=== PATIENT | female | born 1990 | race African-American/Black ===

== ENCOUNTER 2016-09-05 18:43 | Emergency (ER) | payer SELFPAY ==
[~2016-09-05] VITALS: Ht 175.3 cm; Wt 94.0 kg
[2016-09-05 18:45] VITALS: BP 138/88; PULSE 100; RESP 20; TEMP 98; O2SAT 98
[2016-10-08] MEDS ORDERED: ZOFR4TAB3 SL (16:49)
[2016-10-10] MEDS ORDERED: ZOFR4TAB3 SL (15:52)
[2016-10-10] MEDS ORDERED: [UNRECOGNIZED DRUG - CODE] PO (16:03)
[2016-10-15] MEDS ORDERED: LO LTAB PO (16:37)
[2016-10-29] MEDS ORDERED: TRAM50TA PO (10:47)
[2016-11-06] MEDS ORDERED: APRITAB PO (08:18)
[2016-11-18] MEDS ORDERED: ALBUAER3 INH (11:05)
== END 2016-09-05 18:50 | disposition left against medical advice (07) ==
LOC: NED 18:43
DX: R10.9 Unspecified abdominal pain (principal); Z53.21 Procedure and treatment not carried out due to patient leaving prior to being seen by health care provider
CPT/HCPCS: 99281

== ENCOUNTER 2016-09-05 20:14 | Emergency (ER) | payer OTHER ==
[~2016-09-05] VITALS: Ht 175.3 cm; Wt 96.6 kg
[2016-09-05 20:18] VITALS: BP 120/80; PULSE 83; RESP 20; TEMP 98; O2SAT 99
--- NOTE | 2016-09-05 20:58 | PD ---
HPI Chief Complaint: Flank/Kidney Pain Time Seen by Provider: 20:29 Travel History International Travel<30 days: No Contact w/Intl Traveler<30days: No Traveled to known affect area: No History of Present Illness HPI 18-year-old female here for evaluation of right upper quadrant abdominal pain. The patient has had intermittent right upper quadrant pain over the last 3 days associated with nausea but no vomiting. No fevers or chills. Pain is sharp, intermittent, no modifying factors. History of section, appendectomy, and ovarian cyst removal. States that she was seen by her primary care physician who ordered an outpatient right upper quadrant ultrasound, however it is not scheduled for another couple of weeks. She is currently on her menstrual period. No urinary symptoms. [facility] Past Medical History Asthma: Yes Diminished Hearing: No Respiratory: Yes (ASTHMA) Immunizations Current: Yes LMP: 09/05/16 : 3 Para: 1 Miscarriage: 1 Ovarian Cysts: Yes (Cyst removed from right ovary) Past Surgical History Appendectomy: Yes Section: Yes Social History Alcohol Use: Yes (SOCIAL) Tobacco Use: No Substance Use: No Allergies-Medications (Allergen,Severity, Reaction): Coded Allergies: Naproxen (Verified Allergy, Severe, Swelling, 09/05/16) Aspirin (Verified Allergy, Intermediate, faical swelling , 09/05/16) Reported Meds & Prescriptions Reported Meds & Active Scripts Active No Active Prescriptions or Reported Medications Review of Systems Except as stated in HPI: all other systems reviewed are Neg Physical Exam Narrative GENERAL: Well-developed, well-nourished, comfortable, no acute distress. SKIN: Warm and dry. No rash. HEAD: Atraumatic. Normocephalic. EYES: Pupils equal and round. No scleral icterus. No injection or drainage. ENT: Mucous membranes pink and moist. NECK: Trachea midline. No JVD. CARDIOVASCULAR: Regular rate and rhythm. No murmur appreciated. RESPIRATORY: No accessory muscle use. Clear to auscultation. Breath sounds equal bilaterally. GASTROINTESTINAL: Abdomen soft, nondistended. Moderate right upper quadrant tenderness without rebound or guarding. Rest of abdomen is soft and nontender. MUSCULOSKELETAL: No obvious deformities. No clubbing. No cyanosis. No edema. NEUROLOGICAL: Awake and alert. No obvious cranial nerve deficits. Motor grossly within normal limits. Normal speech. PSYCHIATRIC: Appropriate mood and affect; insight and judgment normal. Data Data Last Documented VS Vital Signs Date Time Temp Pulse Resp B/P Pulse Ox O2 Delivery O2 Flow Rate FiO2 09/05/16 20:18 98.0 83 20 120/80 99 Orders Beta Hcg (Quant/Titer) (09/05/16 20:55) Complete Blood Count With Diff (09/05/16 20:55) Comprehensive Metabolic Panel (09/05/16 20:55) Lipase (09/05/16 20:55) Prothrombin Time / Inr (Pt) (09/05/16 20:55) Act Partial Throm Time (Ptt) (09/05/16 20:55) Urinalysis - C+S If Indicated (09/05/16 20:55) Us Abdomen Gallbladder (09/05/16 ) Iv Access Insert/Monitor (09/05/16 20:55) Ecg Monitoring (09/05/16 20:55) Oximetry (09/05/16 20:55) Ondansetron Inj (Zofran Inj) (09/05/16 21:00) Sodium Chloride 0.9% Flush (Ns Flush) (09/05/16 21:00) Labs Laboratory Tests Test 09/05/16 09/05/16 21:09 21:12 Urine Color YELLOW Urine Turbidity CLEAR Urine pH 7.0 Urine Specific [place] 1.027 Urine Protein TRACE mg/dL Urine Glucose (UA) NEG mg/dL Urine Ketones NEG mg/dL Urine Occult Blood MOD Urine Nitrite NEG Urine Bilirubin NEG Urine Leukocyte Esterase NEG Urine RBC 3-5 /hpf Urine WBC 0-2 /hpf Urine Squamous Epithelial 0-5 /hpf Cells Urine Bacteria NONE /hpf Microscopic Urinalysis Comment CULT NOT INDICATED White Blood Count 8.0 TH/MM3 Red Blood Count 4.19 MIL/MM3 Hemoglobin 11.9 GM/DL Hematocrit 35.6 % Mean Corpuscular Volume 85.0 FL Mean Corpuscular Hemoglobin 28.4 PG Mean Corpuscular Hemoglobin 33.5 % Concent Red Cell Distribution Width 12.7 % Platelet Count 232 TH/MM3 Mean Platelet Volume 8.3 FL Neutrophils (%) (Auto) 52.4 % Lymphocytes (%) (Auto) 40.5 % Monocytes (%) (Auto) 4.5 % Eosinophils (%) (Auto) 1.7 % Basophils (%) (Auto) 0.9 % Neutrophils # (Auto) 4.2 TH/MM3 Lymphocytes # (Auto) 3.2 TH/MM3 Monocytes # (Auto) 0.4 TH/MM3 Eosinophils # (Auto) 0.1 TH/MM3 Basophils # (Auto) 0.1 TH/MM3 CBC Comment DIFF FINAL Differential Comment Prothrombin Time 11.5 SEC Prothromb Time International 1.0 RATIO Ratio Activated Partial 24.7 SEC Thromboplast Time Sodium Level 142 MEQ/L Potassium Level 3.7 MEQ/L Chloride Level 107 MEQ/L Carbon Dioxide Level 29.0 MEQ/L Anion Gap 6 MEQ/L Blood Urea Nitrogen 11 MG/DL Creatinine 0.92 MG/DL Estimat Glomerular Filtration 88 ML/MIN Rate Random Glucose 93 MG/DL Calcium Level 8.5 MG/DL Total Bilirubin 0.2 MG/DL Aspartate Amino Transf 13 U/L (AST/SGOT) Alanine Aminotransferase 23 U/L (ALT/SGPT) Alkaline Phosphatase 83 U/L Total Protein 8.2 GM/DL Albumin 3.8 GM/DL Lipase 138 U/L Human Chorionic Gonadotropin, LESS THAN 1 Quant MIU/ML MDM Medical Decision Making Medical Screen Exam Complete: Yes Emergency Medical Condition: Yes Medical Record Reviewed: Yes Differential Diagnosis Cholecystitis, cholelithiasis, pancreatitis, peptic ulcer disease, gastritis, UTI, cystitis, pyelonephritis, nephrolithiasis Narrative Course Vital signs show heart rate 83, blood pressure 120/80, pulse ox 99% on room air , oral temp of 98F. CBC is unremarkable. CMP is unremarkable. Lipase is 138. Beta hCG is negative. UA shows moderate occult blood, 3-5 rbc's, not suggestive of UTI. The patient is currently on her menstrual period. Right upper quadrant ultrasound: CONCLUSION: 1. Small contracted gallbladder with equivocal Cortez's sign. No gallstones are identified Radionuclide imaging is recommended for further evaluation if clinically indicated. Patient was made aware of all findings. She is resting comfortably. At this point I do not believe it is clinically indicated for radionucleotide imaging. She is afebrile. Normal WBC count. She appears very comfortable. I believe she can be further worked up as an outpatient with her primary care physician. She was informed on when to return to the emergency department. She verbalizes understanding and agreement with plan. Diagnosis Primary Impression: Right upper quadrant abdominal pain Referrals: Primary Care Physician 3 days Additional Instructions: Follow-up with your primary care physician this week. Return to the emergency department for worsening symptoms or any other concerns. Scripts No Active Prescriptions or Reported Meds Disposition: 01 DISCHARGE HOME Condition: Stable Russell Pressley MD Sep 05, 2016 20:58
[2016-09-05] MEDS ORDERED: SODIUM CHLORIDE 0.9% FLUSH 5 ML FLUSH IVF PRN (21:00)
[2016-09-05] MEDS ORDERED: ONDANSETRON HCL 4 MG/2 ML VIAL IVP ONE (21:00)
[2016-09-05 21:21] LABS: GLUCOSE,URINE NEG (NEG); KETONE, URINE NEG (NEG); NITRITE,URINE NEG (NEG)
[2016-09-05 21:22] LABS: AUTOMATED NEUTROPHIL # 4.2 TH/MM3 (1.8-7.7); BASOPHIL # 0.1 TH/MM3 (0-0.2); BASOPHIL % 0.9 % (0.0-2.0); EOSINOPHIL # 0.1 TH/MM3 (0-0.4); EOSINOPHIL % 1.7 % (0.0-4.0); HEMATOCRIT 35.6 % (35.0-46.0); HEMO FLAGS DIFF FINAL; LYMPH % 40.5 % (9.0-44.0); LYMPHOCYTE # 3.2 TH/MM3 (1.0-4.8); MEAN CORPUSCULAR HEMOGLOBIN 28.4 PG (27.0-34.0); MEAN CORPUSCULAR HGB CONC 33.5 % (32.0-36.0); MONO % 4.5 % (0.0-8.0); NEUT % 52.4 % (16.0-70.0); PLATELET COUNT 232 TH/MM3 (150-450); RED BLOOD COUNT 4.19 MIL/MM3 (4.00-5.30); RED CELL DISTRIBUTION WIDTH 12.7 % (11.6-17.2)
[2016-09-05 21:28] LABS: BLOOD, URINE MOD (NEG)
[2016-09-05 21:34] LABS: CHLORIDE 107 MEQ/L (98-107); POTASSIUM 3.7 MEQ/L (3.5-5.1); SODIUM (NA) 142 MEQ/L (136-145)
[2016-09-05 21:36] LABS: COMMENT (UR) CULT NOT INDICATED; CULTURE IF INDICATED CULT NOT INDICATED; SQUAMOUS EPITHELIAL CELL URINE 0-5 /hpf (0-5); URINE COLOR YELLOW (YELLW/STRAW); WBC, URINE 0-2 /hpf (0-5)
[2016-09-05 21:39] LABS: ANION GAP 6 MEQ/L (5-15); APTT (PATIENT) 24.7 SEC (24.3-30.1); BLOOD UREA NITROGEN 11 MG/DL (7-18); PROTHROMBIN TIME - PATIENT 11.5 SEC (9.8-11.6)
[2016-09-05 21:41] LABS: ALT (GPT) 23 U/L (10-53)
[2016-09-05 21:42] LABS: AST (GOT) 13 U/L (15-37); GLOMERULAR FILTRATION RATE 88 ML/MIN (>89)
[2016-09-05 21:43] LABS: TOTAL BILIRUBIN ADULT 0.2 MG/DL (0.2-1.0)
[2016-09-05 21:44] LABS: ALKALINE PHOSPHATASE 83 U/L (45-117)
[2016-09-05 21:47] LABS: BETA HCG QUANT LESS THAN 1 MIU/ML (0-5)
--- NOTE | 2016-09-05 23:14 | RADHPO ---
EXAM DATE/TIME: 09/05/2016 22:36 [facility] COMPARISON: No previous studies available for comparison. INDICATIONS : Right upper quadrant pain. MEDICAL HISTORY : . Asthma. Ovarian cysts. SURGICAL HISTORY : Appendectomy. section. Ovarian cyst removal. ENCOUNTER: Initial ACUITY: 3 days PAIN SCORE: 3/10 LOCATION: Right upper quadrant MEASUREMENTS: LIVER: 14.6 cm length COMMON DUCT: 3 mm RIGHT KIDNEY: 10.0 x 5.4 x 4.5 cm FINDINGS: Ultrasound of the upper abdomen demonstrates normal echogenicity of the liver. No intrahepatic or ext ra hepatic ductal dilatation is seen. There is hepatopedal flow through the portal vein. The right k idney is unremarkable. The pancreas is not visualized secondary to overlying bowel gas. The gallbladd er is small and contracted but no stones are seen. There is an equivocal sonographic Cortez's sign. CONCLUSION: 1. Small contracted gallbladder with equivocal Cortez's sign. No gallstones are identified Radionucli de imaging is recommended for further evaluation if clinically indicated. Adama Hurley MD on September 05, 2016 at 23:11 Board Certified Radiologist. This report was verified electronically.
[2016-09-05 23:46] VITALS: BP 119/78; PULSE 83; RESP 18; O2SAT 99
[2016-10-08] MEDS ORDERED: ZOFR4TAB3 SL (16:49)
[2016-10-10] MEDS ORDERED: ZOFR4TAB3 SL (15:52)
[2016-10-10] MEDS ORDERED: [UNRECOGNIZED DRUG - CODE] PO (16:03)
[2016-10-15] MEDS ORDERED: LO LTAB PO (16:37)
[2016-10-29] MEDS ORDERED: TRAM50TA PO (10:47)
[2016-11-06] MEDS ORDERED: APRITAB PO (08:18)
[2016-11-18] MEDS ORDERED: ALBUAER3 INH (11:05)
== END 2016-09-06 00:06 | disposition home or self-care (01) ==
LOC: PHED 20:14
DX: R10.11 Right upper quadrant pain (principal)
CPT/HCPCS: 76705; 80053; 81001; 83690; 84702; 85025; 85610; 85730; 96374; 99284; J2405

== ENCOUNTER 2016-10-26 08:53 | Emergency (ER) | payer OTHER ==
[~2016-10-26] VITALS: Ht 175.3 cm; Wt 96.0 kg
[~2016-10-26 08:53] MED LIST: LO LTAB PO; ZOFR4TAB3 SL; [UNRECOGNIZED DRUG - CODE] PO
[2016-10-26 08:54] VITALS: BP 120/76; PULSE 78; RESP 20; TEMP 98.1; O2SAT 98
[2016-10-26] MEDS ORDERED: SODIUM CHLOR 0.9% 1000 ML INJ 1,000 ML IV SCH (09:07)
[2016-10-26 09:10] VITALS: O2SAT 99
[2016-10-26] MEDS ORDERED: SODIUM CHLORIDE 0.9% FLUSH 10 ML FLUSH IV FLUSH PRN (09:15)
[2016-10-26] MEDS ORDERED: MORPHINE SULFATE 4 MG/ML INJ IV PUSH ONE (09:15)
--- NOTE | 2016-10-26 09:16 | PD ---
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 Patient says this started yesterday. However she has had this same pain on and off for past 3 months. She was seen in the emergency room here at least once and had a gallbladder ultrasound done which was negative. Patient also had an MRI of her abdomen. She is waiting for an [employer] appointment. She says she has started with vaginal bleeding yesterday. It's not heavy and she is not passing big clots. She looks anxious and in distress. Vital signs were within normal limits. PFSH Past Medical History Narrative Medical List of her past medical, surgical, social and family history was reviewed from the nursing note. Hx Anticoagulant Therapy: No Asthma: Yes Cardiovascular Problems: No Chemotherapy: No Cerebrovascular Accident: No Diabetes: No Diminished Hearing: No Respiratory: Yes (ASTHMA) Immunizations Current: Yes ?: Unknown LMP: 10/10/16 : 3 Para: 1 Miscarriage: 1 Ovarian Cysts: Yes (Cyst removed from right ovary) Past Surgical History Appendectomy: Yes Section: Yes Hysterectomy: No Social History Alcohol Use: Yes (SOCIAL) Tobacco Use: No Substance Use: No Allergies-Medications (Allergen,Severity, Reaction): Coded Allergies: Naproxen (Verified Allergy, Severe, Swelling, 10/26/16) Aspirin (Verified Allergy, Intermediate, faical swelling , 10/26/16) Comments List of her allergies reviewed from the nursing note. Reported Meds & Prescriptions Reported Meds & Active Scripts Active Tramadol (Tramadol HCl) 50 Mg Tab 50 Mg PO Q6H PRN Macrobid (Nitrofurantoin Monoh/Nitrofur Macro) 100 Mg Cap 100 Mg PO BID Narrative Medication Most of her home medications reviewed from the nursing note. Review of Systems Except as stated in HPI: all other systems reviewed are Neg Physical Exam Narrative GENERAL: Awake, alert, anxious, moderate distress SKIN: Focused skin assessment warm/dry. HEAD: Atraumatic. Normocephalic. EYES: Pupils equal and round. No scleral icterus. No injection or drainage. ENT: No nasal bleeding or discharge. Mucous membranes pink and moist. NECK: Trachea midline. No JVD. CARDIOVASCULAR: Regular rate and rhythm. No murmur appreciated. RESPIRATORY: No accessory muscle use. Clear to auscultation. Breath sounds equal bilaterally. GASTROINTESTINAL: Abdomen soft, non-tender, nondistended. Hepatic and splenic margins not palpable. MUSCULOSKELETAL: No obvious deformities. No clubbing. No cyanosis. No edema. NEUROLOGICAL: Awake and alert. No obvious cranial nerve deficits. Motor grossly within normal limits. Normal speech. PSYCHIATRIC: Appropriate mood and affect; insight and judgment normal. Data Data Last Documented VS Vital Signs Date Time Temp Pulse Resp B/P Pulse Ox O2 Delivery O2 Flow Rate FiO2 10/26/16 09:57 68 20 122/78 99 Room Air 10/26/16 08:54 98.1 Orders Complete Blood Count With Diff (10/26/16 09:07) Comprehensive Metabolic Panel (10/26/16 09:07) Lipase (10/26/16 09:07) Urinalysis - C+S If Indicated (10/26/16 09:07) Ct Abd/Pel W/O Iv Contrast (10/26/16 09:07) Iv Access Insert/Monitor (10/26/16 09:07) Ecg Monitoring (10/26/16 09:07) Oximetry (10/26/16 09:07) Morphine Inj (Morphine Inj) (10/26/16 09:15) Sodium Chlor 0.9% 1000 Ml Inj (Ns 1000 M (10/26/16 09:07) Sodium Chloride 0.9% Flush (Ns Flush) (10/26/16 09:15) Urine Culture (10/26/16 09:15) Nitrofurantoin Monohyd Macrocr (Macrobid (10/26/16 09:45) Labs Laboratory Tests Test 10/26/16 09:15 White Blood Count 6.0 TH/MM3 Red Blood Count 4.59 MIL/MM3 Hemoglobin 12.9 GM/DL Hematocrit 38.9 % Mean Corpuscular Volume 84.8 FL Mean Corpuscular Hemoglobin 28.1 PG Mean Corpuscular Hemoglobin 33.2 % Concent Red Cell Distribution Width 13.3 % Platelet Count 258 TH/MM3 Mean Platelet Volume 9.0 FL Neutrophils (%) (Auto) 52.1 % Lymphocytes (%) (Auto) 40.6 % Monocytes (%) (Auto) 5.5 % Eosinophils (%) (Auto) 1.3 % Basophils (%) (Auto) 0.5 % Neutrophils # (Auto) 3.1 TH/MM3 Lymphocytes # (Auto) 2.4 TH/MM3 Monocytes # (Auto) 0.3 TH/MM3 Eosinophils # (Auto) 0.1 TH/MM3 Basophils # (Auto) 0.0 TH/MM3 CBC Comment DIFF FINAL Differential Comment Urine Color LIGHT-RED Urine Turbidity HAZY Urine pH 5.5 Urine Specific [place] 1.020 Urine Protein 30 mg/dL Urine Glucose (UA) NEG mg/dL Urine Ketones NEG mg/dL Urine Occult Blood LARGE Urine Nitrite NEG Urine Bilirubin NEG Urine Urobilinogen LESS THAN 2.0 MG/DL Urine Leukocyte Esterase MOD Urine RBC 4 /hpf Urine WBC 9 /hpf Urine Squamous Epithelial 15 /hpf Cells Urine Transitional Epithelial <1 /hpf Cells Urine Amorphous Sediment MOD Urine Bacteria OCC /hpf Urine Mucus FEW /lpf Microscopic Urinalysis Comment CULTURE INDICATED Sodium Level 138 MEQ/L Potassium Level 4.1 MEQ/L Chloride Level 105 MEQ/L Carbon Dioxide Level 26.5 MEQ/L Anion Gap 7 MEQ/L Blood Urea Nitrogen 11 MG/DL Creatinine 0.87 MG/DL Estimat Glomerular Filtration 94 ML/MIN Rate Random Glucose 94 MG/DL Calcium Level 8.9 MG/DL Total Bilirubin 0.4 MG/DL Aspartate Amino Transf 12 U/L (AST/SGOT) Alanine Aminotransferase 22 U/L (ALT/SGPT) Alkaline Phosphatase 93 U/L Total Protein 8.2 GM/DL Albumin 3.9 GM/DL Lipase 93 U/L [facility] Medical Decision Making Medical Screen Exam Complete: Yes Emergency Medical Condition: Yes Medical Record Reviewed: Yes Differential Diagnosis Ruptured ovarian cyst, renal colic Narrative Course 9:16 AM awaiting for the CAT scan to be done and resulted. Awaiting for blood test. Patient was medicated for pain. 10:[address] scan is within normal limit. UA was suggestive of UTI and have given her dose of Macrobid. I will discharge her home. Procedures EKG Prior to Arrival: No Diagnosis Primary Impression: Lower abdominal pain, unspecified Additional Impression: UTI (urinary tract infection) Qualified Code: N39.0 - Urinary tract infection with hematuria, site unspecified Referrals: Primary Care Physician 3 days Additional Instructions: Please follow-up with a [employer]PECTOR specialist. Take the medication as per the prescription direction. Med/Other Pt SpecificInfo: Prescription(s) given Scripts Nitrofurantoin Monohydrate Macrocrystals (Macrobid)100 Mg [id number] Mg PO BID #10 CAP Ref 0 Prov:Mo Dwyer MD 10/26/16 Disposition: 01 DISCHARGE HOME Condition: Stable Mo Dwyer MD Oct 26, 2016 09:16
[2016-10-26 09:28] LABS: AUTOMATED NEUTROPHIL # 3.1 TH/MM3 (1.8-7.7); BASOPHIL % 0.5 % (0.0-2.0); EOSINOPHIL # 0.1 TH/MM3 (0-0.4); EOSINOPHIL % 1.3 % (0.0-4.0); HEMATOCRIT 38.9 % (35.0-46.0); HEMO FLAGS DIFF FINAL; LYMPH % 40.6 % (9.0-44.0); LYMPHOCYTE # 2.4 TH/MM3 (1.0-4.8); MEAN CELL VOLUME 84.8 FL (80.0-100.0); MEAN CORPUSCULAR HEMOGLOBIN 28.1 PG (27.0-34.0); MEAN CORPUSCULAR HGB CONC 33.2 % (32.0-36.0); MONO % 5.5 % (0.0-8.0); NEUT % 52.1 % (16.0-70.0); PLATELET COUNT 258 TH/MM3 (150-450); RED BLOOD COUNT 4.59 MIL/MM3 (4.00-5.30); RED CELL DISTRIBUTION WIDTH 13.3 % (11.6-17.2)
[2016-10-26 09:38] LABS: BACTERIA, URINE OCC /hpf; BLOOD, URINE LARGE (NEG); GLUCOSE,URINE NEG (NEG); KETONE, URINE NEG (NEG); MUCUS URINE FEW /lpf (OCC); NITRITE,URINE NEG (NEG); PH, URINE 5.5 (5.0-8.5); SQUAMOUS EPITHELIAL CELL URINE 15 /hpf (0-5); TRANSITIONAL EPI CELLS, URINE <1 /hpf
[2016-10-26 09:39] LABS: COMMENT (UR) CULTURE INDICATED; CULTURE IF INDICATED CULTURE INDICATED; URINE COLOR LIGHT-RED (YELLW/STRAW)
--- NOTE | 2016-10-26 09:40 | RADRPT ---
EXAM DATE/TIME: 10/26/2016 09:22 [facility] COMPARISON: No previous studies available for comparison. INDICATIONS : Abdomen pain radiating to back. ORAL CONTRAST: No oral contrast ingested. RADIATION DOSE: 8.32 CTDIvol (mGy) MEDICAL HISTORY : None SURGICAL HISTORY : Appendectomy. section. ENCOUNTER: Initial ACUITY: 1 day PAIN SCALE: 4/10 LOCATION: Bilateral abdomen. TECHNIQUE: Volumetric scanning of the abdomen and pelvis was performed. Using automated exposure control and ad justment of the mA and/or kV according to patient size, radiation dose was kept as low as reasonably achievable to obtain optimal diagnostic quality images. FINDINGS: LOWER LUNGS: The visualized lower lungs are clear. LIVER: Homogeneous density without lesion. There is no dilation of the biliary tree. No calcified gallston es. SPLEEN: Normal size without lesion. PANCREAS: Within normal limits. KIDNEYS: Normal in size and shape. There is no mass, stone, or hydronephrosis. ADRENAL GLANDS: Within normal limits. VASCULAR: There is no aortic aneurysm. BOWEL/MESENTERY: The stomach, small bowel, and colon demonstrate no acute abnormality. There is no free intraperitone al air or fluid. The patient is status post prior appendectomy. ABDOMINAL WALL: Within normal limits. RETROPERITONEUM: There is no lymphadenopathy. BLADDER: No wall thickening or mass. REPRODUCTIVE: Within normal limits. INGUINAL: There is no lymphadenopathy or hernia. MUSCULOSKELETAL: Within normal limits for patient age. CONCLUSION: Normal examination. The Caitlin Coley MD on October 26, 2016 at 9:37 Board Certified Radiologist. This report was verified electronically.
[2016-10-26] MEDS ORDERED: NITROFURANTOIN MONOHYD MACROCR 100 MG CAP PO ONE (09:45)
[2016-10-26 09:48] LABS: ANION GAP 7 MEQ/L (5-15); AST (GOT) 12 U/L (15-37); BICARBONATE 26.5 MEQ/L (21.0-32.0); BLOOD UREA NITROGEN 11 MG/DL (7-18); CHLORIDE 105 MEQ/L (98-107); GLOMERULAR FILTRATION RATE 94 ML/MIN (>89); POTASSIUM 4.1 MEQ/L (3.5-5.1); SODIUM (NA) 138 MEQ/L (136-145)
[2016-10-26 09:51] LABS: ALKALINE PHOSPHATASE 93 U/L (45-117); ALT (GPT) 22 U/L (10-53); TOTAL BILIRUBIN ADULT 0.4 MG/DL (0.2-1.0)
[2016-10-26 09:57] VITALS: BP 122/78; PULSE 68; RESP 20; O2SAT 99
[2016-10-26] MEDS ORDERED: MACR100C2 PO (10:05)
[2016-10-29] MEDS ORDERED: TRAM50TA PO (10:47)
[2016-11-06] MEDS ORDERED: APRITAB PO (08:18)
[2016-11-18] MEDS ORDERED: ALBUAER3 INH (11:05)
== END 2016-10-26 11:05 | disposition home or self-care (01) ==
LOC: NEPE 08:53
DX: N39.0 Urinary tract infection, site not specified (principal); R10.30 Lower abdominal pain, unspecified; J45.909 Unspecified asthma, uncomplicated
CPT/HCPCS: 74176; 80053; 81001; 83690; 85025; 87086; 96361; 96374; 99284; J2270; J7030

== ENCOUNTER 2016-12-11 08:54 | Emergency (ER) | payer OTHER ==
[~2016-12-11] VITALS: Ht 175.3 cm; Wt 90.5 kg
[~2016-12-11 08:54] MED LIST changes: +ALBUAER3 INH; +APRITAB PO; -LO LTAB PO; +TRAM50TA PO; -ZOFR4TAB3 SL; -[UNRECOGNIZED DRUG - CODE] PO
[2016-12-11 08:55] VITALS: BP 117/65; PULSE 100; RESP 20; TEMP 98; O2SAT 97
[2016-12-11] MEDS ORDERED: KETOROLAC TROMETHAMINE 60 MG/2 ML (IM) VIAL IM ONE (09:15)
[2016-12-11] MEDS ORDERED: IBUP100S7 PO (09:18)
--- NOTE | 2016-12-11 09:18 | PD ---
HPI Chief Complaint: Cold / Flu Symptoms Time Seen by Provider: 09:13 Travel History International Travel<30 days: No Contact w/Intl Traveler<30days: No Traveled to known affect area: No History of Present Illness HPI So 26 year-old woman who presents to the emergency department complaining of feeling sick for about a week. She states she's had fevers bodyaches sore throat and sores in her mouth and some tear adenopathy. She was seen by prescribed her Magic mouthwash antibiotics but she's not gotten these filled because she feels "too weak". States she's been taking tramadol which she takes for her belly pain but is not helping. She still having coughing. She has swollen glands. She still feeling bad. States her 1-year-old was sick with similar symptoms. History Past Medical History Narrative Medical Asthma LMP: 11/10/16 : 3 Para: 1 Social History Alcohol Use: Yes (SOCIAL) Tobacco Use: No Allergies-Medications (Allergen,Severity, Reaction): Coded Allergies: Naproxen (Verified Allergy, Severe, Swelling, 11/18/16) Aspirin (Verified Allergy, Intermediate, faical swelling , 11/18/16) Reported Meds & Prescriptions Reported Meds & Active Scripts Active Proair Hfa 8.5 GM Inh (Albuterol Sulfate) 90 Mcg/Act Aer 2 Puff INH Q4-6H PRN 108 mcg/actuation Apri (Desogestrel-Ethinyl Estradiol) 0.15-30 Mg-Mcg Tab 1 Tab PO DAILY Tramadol (Tramadol HCl) 50 Mg Tab 50 Mg PO Q6H PRN Review of Systems Except as stated in HPI: all other systems reviewed are Neg Physical Exam Narrative GENERAL: Well-appearing 26 year-old woman, appears uncomfortable but nontoxic. SKIN: Focused skin assessment warm/dry. HEAD: Atraumatic. Normocephalic. EYES: Pupils equal and round. No scleral icterus. No injection or drainage. ENT: No nasal bleeding or discharge. Mucous membranes pink and moist. She has a couple ulceration on the lips, on the gingiva on the left, and on the cheek. NECK: Trachea midline. Some minimal anterior cervical adenopathy. CARDIOVASCULAR: Regular rate and rhythm. No murmur appreciated. RESPIRATORY: No accessory muscle use. Clear to auscultation. Breath sounds equal bilaterally. GASTROINTESTINAL: Abdomen soft, non-tender, nondistended. Hepatic and splenic margins not palpable. MUSCULOSKELETAL: No obvious deformities. No edema. NEUROLOGICAL: Awake and alert. No obvious cranial nerve deficits. Motor grossly within normal limits. Normal speech. PSYCHIATRIC: Sad. Data Data Last Documented VS Vital Signs Date Time Temp Pulse Resp B/P Pulse Ox O2 Delivery O2 Flow Rate FiO2 12/11/16 08:55 98.0 100 20 117/65 97 Room Air [facility] Medical Decision Making Medical Screen Exam Complete: Yes Emergency Medical Condition: Yes Differential Diagnosis Viral syndrome with viral enanthem, gingiva stomatitis, other Narrative Course Medical decision-making 18 year-old woman with gingivostomatitis. States she feels miserable. She hasn 't been eating or drinking much. She is not picked up her prescriptions from when she was seen previously. Would recommend she continue Magic mouthwash. She states she has an allergy to aspirin and naproxen but has done fine with ibuprofen in the past. We'll recommend some liquid ibuprofen. Continue by mouth hydration. Diagnosis Primary Impression: Gingivostomatitis Additional Instructions: Take magic mouthwash as previously prescribed. Take liquid ibuprofen as prescribed. Follow-up with your regular doctor in 2 days for repeat evaluation. Drink fluids and soups to maintain hydration and nutrition. Return to the emergency department for any new or worsening symptoms. Med/Other Pt SpecificInfo: Prescription(s) given Scripts Ibuprofen Liq 100 Mg/5 Ml [id number] Mg PO Q8H PRN (PAIN SCALE 1 TO 10) #180 ML Ref 0 Prov:Bradly Vela MD 12/11/16 Disposition: 01 DISCHARGE HOME Condition: Stable Bradly Vela MD December 11, 2016 09:18
[2016-12-11] MEDS ORDERED: ACET500L PO (09:35)
[2016-12-11] MEDS ORDERED: SODIUM CHLOR 0.9% 1000 ML INJ 1,000 ML IV ONE ×2 (09:45)
[2016-12-11] MEDS ORDERED: ACETAMINOPHEN 650 MG/20.3 ML UDC PO ONE (10:00)
[2016-12-11] MEDS: NYSTAT/DIPHENHY/LIDO MOUTHWASH (Adult) 120ML SWISH-SWAL SCH ×2 (10:09→10:47)
[2016-12-11] MEDS ORDERED: ONDANSETRON HCL 4 MG/2 ML VIAL IV ONE (10:45)
[2016-12-11 10:55] VITALS: BP 110/70; PULSE 80; RESP 20; O2SAT 98
[2016-12-11] MEDS ORDERED: ZOFR4TAB3 SL (12:03)
[2016-12-11] MEDS ORDERED: NYSTAT/DIPHENHY/LIDO MOUTHWASH (Adult) 120ML SWISH-SWAL SCH (13:00)
== END 2016-12-11 12:36 | disposition home or self-care (01) ==
LOC: NEPD 08:54
DX: K05.10 Chronic gingivitis, plaque induced (principal); J45.909 Unspecified asthma, uncomplicated
CPT/HCPCS: 96360; 96361; 96374; 99284; J2405; J7030

== ENCOUNTER 2016-12-18 18:37 | Emergency (ER) | payer OTHER ==
[~2016-12-18] VITALS: Ht 175.3 cm; Wt 96.0 kg
[~2016-12-18 18:37] MED LIST changes: +ACET500L PO; +ZOFR4TAB3 SL
[2016-12-18 18:48] VITALS: BP 112/83; PULSE 100; RESP 16; TEMP 98.7; O2SAT 97
--- NOTE | 2016-12-18 19:34 | PD ---
HPI Chief Complaint: Cold / Flu Symptoms Time Seen by Provider: 19:22 Travel History International Travel<30 days: No Contact w/Intl Traveler<30days: No Traveled to known affect area: No History of Present Illness HPI 26-year-old female presents to the emergency room for evaluation of cough for the past 3 weeks. Patient had an upper respiratory infection at onset of symptoms. She came to the emergency room one week ago and was given a prescription for Magic mouthwash after being diagnosed with gingivostomatitis which she filled and used appropriately. Patient had chills in the beginning of her illness but has not had them recently. She has been using her inhaler and nebulizer but not taking any other medications for her symptoms. Cough is nonproductive. Denies fever, vomiting, congestion, sore throat, earache. Denies chronic medical conditions are daily medications. PFSH Past Medical History Hx Anticoagulant Therapy: No Asthma: Yes Cardiovascular Problems: No Chemotherapy: No Cerebrovascular Accident: No Diabetes: No Diminished Hearing: No Respiratory: Yes (asthma) Immunizations Current: Yes ?: Not LMP: LAST MONTH : 3 Para: 1 Miscarriage: 1 Ovarian Cysts: Yes (Cyst removed from right ovary) Past Surgical History Appendectomy: Yes Section: Yes Hysterectomy: No Social History Alcohol Use: Yes (SOCIAL) Tobacco Use: No Substance Use: No Allergies-Medications (Allergen,Severity, Reaction): Coded Allergies: Naproxen (Verified Allergy, Severe, Swelling, 12/18/16) Aspirin (Verified Allergy, Intermediate, faical swelling , 12/18/16) Reported Meds & Prescriptions Reported Meds & Active Scripts Active Tessalon Perles (Benzonatate) 100 Mg Cap 100 Mg PO TID PRN 7 Days Proair Hfa 8.5 GM Inh (Albuterol Sulfate) 90 Mcg/Act Aer 2 Puff INH Q4-6H PRN 108 mcg/actuation Review of Systems Except as stated in HPI: all other systems reviewed are Neg Physical Exam Narrative GENERAL: Well-nourished, well-developed patient. SKIN: Focused skin assessment warm/dry. HEAD: Normocephalic. EYES: No scleral icterus. No injection or drainage. ENT: Mucosa pink and moist. No erythema or exudates. No uvular edema. No uvular , palatal, or tonsillar deviation. Airway patent. EARS: Bilateral pinnae and external canals appear within normal limits. Bilateral tympanic membranes without erythema, dullness or perforation. NECK: Supple, trachea midline. No JVD or lymphadenopathy. CARDIOVASCULAR: Regular rate and rhythm without murmurs, gallops, or rubs. RESPIRATORY: Breath sounds equal bilaterally. No accessory muscle use. No crackles, rales, wheezes, or rhonchi. Data Data Last Documented VS Vital Signs Date Time Temp Pulse Resp B/P Pulse Ox O2 Delivery O2 Flow Rate FiO2 12/18/16 19:00 100 18 97 Room Air 12/18/16 18:48 98.7 112/83 Orders Chest, Pa & Lat (12/18/16 ) MDM Medical Decision Making Medical Screen Exam Complete: Yes Emergency Medical Condition: Yes Medical Record Reviewed: Yes Differential Diagnosis Bronchitis versus upper respiratory infection versus pneumonia unlikely Narrative Course 26-year-old female presents to the emergency room for evaluation of nonproductive cough for the past 3 weeks. Cough causes pleuritic chest pain and upper back pain. Patient has upper respiratory symptoms at onset but does have all gone away. She has been using her inhaler and nebulizer without significant relief. She has not taken anything [id number]. Lungs sounds are clear and equal bilaterally. Patient is 97% on room air. No increased work of breathing. Chest x-ray shows no acute abnormality. This is bronchitis. Patient discharged with Tessalon Perles and told to follow up with primary care physician or return for worsening symptoms. She understands and agrees to plan. Diagnosis Primary Impression: Acute bronchitis Qualified Code: J20.9 - Acute bronchitis, unspecified organism Additional Impression: Pleuritic chest pain Referrals: Primary Care Physician Patient Instructions: Acute Bronchitis (ED), General Instructions, Pleurisy (ED ) Additional Instructions: Rest and drink plenty of fluids. Take Tessalon Perles as directed, as needed for cough. Take ibuprofen with food as directed, as needed for pain. Follow-up with a primary care physician. Return to the emergency room for worsening symptoms. Scripts Benzonatate (Tessalon Perles)100 Mg Tsq508 Mg PO TID PRN (COUGH) 7 Days Ref 0 Prov:Russell Pressley MD 12/18/16 Disposition: 01 DISCHARGE HOME Condition: Stable Kelly Donohue December 18, 2016 19:34
[2016-12-18] MEDS ORDERED: BENZ100 PO (19:52)
--- NOTE | 2016-12-18 19:59 | RADHPO ---
EXAM DATE/TIME: 12/18/2016 19:36 [facility] COMPARISON: No previous studies available for comparison. INDICATIONS : Cough, shortness of breath for 3 weeks MEDICAL HISTORY : Asthma SURGICAL HISTORY : None. ENCOUNTER: Initial ACUITY: 3 weeks PAIN SCORE: 0/10 LOCATION: Bilateral chest FINDINGS: PA and lateral views of the chest demonstrate the lungs to be symmetrically aerated without evidence of mass, infiltrate or effusion. The cardiomediastinal contours are unremarkable. Osseous structure s are intact. CONCLUSION: Normal examination. Robi Rao Jr., MD on December 18, 2016 at 19:57 Board Certified Radiologist. This report was verified electronically.
== END 2016-12-18 20:11 | disposition home or self-care (01) ==
LOC: PHEFT 18:37
DX: J20.9 Acute bronchitis, unspecified (principal); R07.89 Other chest pain; J45.909 Unspecified asthma, uncomplicated; Z79.899 Other long term (current) drug therapy
CPT/HCPCS: 71020; 99283

== ENCOUNTER 2017-06-15 12:11 | Emergency (ER) | payer OTHER ==
[~2017-06-15] VITALS: Ht 175.3 cm; Wt 94.5 kg
[~2017-06-15 12:11] MED LIST changes: -ACET500L PO; -APRITAB PO; +MEDR4PAK PO; +ROBA750T PO; -TRAM50TA PO; -ZOFR4TAB3 SL
[2017-06-15 12:21] VITALS: BP 112/85; PULSE 89; RESP 24; TEMP 97.9; O2SAT 98
[2017-06-15 12:30] VITALS: O2SAT 99
[2017-06-15] MEDS ORDERED: SODIUM CHLORIDE 0.9% FLUSH 10 ML FLUSH IVF PRN (12:30)
[2017-06-15] MEDS ORDERED: methylPREDNISolone SOD SUCC 125 MG/2 ML VIAL IM ONE (12:30)
--- NOTE | 2017-06-15 12:30 | PD ---
HPI Chief Complaint: Respiratory Symptoms Time Seen by Provider: 12:25 Travel History International Travel<30 days: No Contact w/Intl Traveler<30days: No Traveled to known affect area: No History of Present Illness HPI Patient presents with complaints of asthma attack. Reports shortness of breath since this morning. Reports difficulty breathing last night when she was sleeping. Positive sick contacts. No relief with albuterol. She has 2 sick children with colds. Nonsmoker. Asthma history such she was a child. Denies nausea vomiting diarrhea or fever. PFSH Past Medical History Hx Anticoagulant Therapy: No Asthma: Yes Cardiovascular Problems: No Chemotherapy: No Cerebrovascular Accident: No Diabetes: No Diminished Hearing: No Respiratory: Yes Immunizations Current: Yes ?: Not LMP: 06-15-17 : 3 Para: 1 Miscarriage: 1 Ovarian Cysts: Yes (Cyst removed from right ovary) Past Surgical History Appendectomy: Yes Section: Yes Hysterectomy: No Social History Alcohol Use: Yes (SOCIAL) Tobacco Use: No Substance Use: No Allergies-Medications (Allergen,Severity, Reaction): Coded Allergies: naproxen (Unverified Allergy, Severe, Swelling, 06/15/17) aspirin (Unverified Allergy, Intermediate, faical swelling , 06/15/17) Reported Meds & Prescriptions Reported Meds & Active Scripts Active Robaxin (Methocarbamol) 750 Mg Tab 750 Mg PO TID Medrol Dosepak (Methylprednisolone) 4 Mg Dspk 4 Mg PO DIRECTED Per Pharmacist direction Proair Hfa 8.5 GM Inh (Albuterol Sulfate) 90 Mcg/Act Aer 2 Puff INH Q4-6H PRN 108 mcg/actuation Review of Systems General / Constitutional: No: Fever Eyes: No: Visual changes HENT: No: Headaches Cardiovascular: No: Chest Pain or Discomfort Respiratory: Positive: Shortness of Breath, Wheezing Gastrointestinal: No: Abdominal Pain Genitourinary: No: Dysuria Musculoskeletal: No: Pain Skin: No Rash Neurologic: No: Weakness Psychiatric: No: Depression Endocrine: No: Polydipsia Hematologic/Lymphatic: No: Easy Bruising Physical Exam Narrative GENERAL: Well-nourished, well-developed patient. SKIN: Focused skin assessment warm/dry. HEAD: Normocephalic. EYES: No scleral icterus. No injection or drainage. NECK: Supple, trachea midline. No JVD or lymphadenopathy. CARDIOVASCULAR: Regular rate and rhythm without murmurs, gallops, or rubs. RESPIRATORY: Breath sounds restricted but equal. No accessory muscle use. No prominent wheeze. GASTROINTESTINAL: Abdomen soft, non-tender, nondistended. MUSCULOSKELETAL: No cyanosis, or edema. BACK: Nontender without obvious deformity. No CVA tenderness. Data Data Last Documented VS Vital Signs Date Time Temp Pulse Resp B/P (MAP) Pulse Ox O2 Delivery O2 Flow Rate FiO2 06/15/17 13:08 78 20 135/61 (85) 100 Room Air 06/15/17 12:21 97.9 Orders Orders Ecg Monitoring (06/15/17 12:25) Oximetry (06/15/17 12:25) Oxygen Administration (06/15/17 12:25) Methylprednisolone So Succ Inj (Solumedr (06/15/17 12:30) Albuterol-Ipratropium Neb (Duoneb Neb) (06/15/17 12:30) Sodium Chloride 0.9% Flush (Ns Flush) (06/15/17 12:30) Electrocardiogram (06/15/17 12:16) MDM Medical Decision Making Medical Screen Exam Complete: Yes Emergency Medical Condition: Yes Differential Diagnosis Reactive airway disease, asthma exacerbation, bronchitis, viral upper respiratory infection Narrative Course Assessment and plan discussed with patient at bedside. Patient received IM Solu -Medrol and DuoNeb 3 with improvement of breathing. EKG reveals sinus rhythm rate of 86. Breathing much easier at this time. Patient does have a nebulizer at home. Diagnosis Primary Impression: Reactive airway disease Qualified Codes: J45.21 - Mild intermittent asthma with (acute) exacerbation Patient Instructions: General Instructions Additional Instructions: Encouraged rest and fluids. Medications as prescribed. Follow-up with PCP. Return to emergency room if any onset of new symptoms. Med/Other Pt SpecificInfo: Prescription(s) given Scripts Prednisone (21) 10 mg tab Dose Pack (Prednisone (21) 10 mg tab Dose Pack) 10 Mg Pack 10 MG PO DIRECTED for Inflammation, #1 DSPK 0 Refills Prov: Agustin Gunter MD 06/15/17 Ipratropium-Albuterol Neb (Duoneb) 0.5-2.5 Mg/3 Ml Neb 1 NEBULE INH Q4HR NEB for Shortness of Breath, #20 NEBULE 0 Refills Prov: Agustin Gunter MD 06/15/17 Disposition: 01 DISCHARGE HOME Condition: Good Agustin Gunter MD Jun 15, 2017 12:30
[2017-06-15] MEDS: RESP: ALBUTEROL 2.5 MG/IPRATROPIUM 0.5 MG NEB (SCH) INH (12:31)
[2017-06-15 13:08] VITALS: BP 135/61; PULSE 78; RESP 20; O2SAT 100
[2017-06-15 14:56] VITALS: BP 108/75; PULSE 82; RESP 20; O2SAT 100
[2017-06-15] MEDS ORDERED: PRED10PA PO (14:56)
[2017-06-15] MEDS ORDERED: IPRASOL INH (14:56)
--- NOTE | 2017-06-15 21:20 | EKG ---
Date Performed: 06/15/2017 Time Performed: 12:16:41 PTAGE: 26 years EKG: Sinus rhythm NORMAL ECG NO PREVIOUS TRACING DOCTOR: Christian Al Interpretating Date/Time 06/15/2017 21:19:15
[2017-06-24] MEDS ORDERED: PULM180I INH (15:11)
== END 2017-06-15 15:16 | disposition home or self-care (01) ==
LOC: PHED 12:11
DX: J45.21 Mild intermittent asthma with (acute) exacerbation (principal)
CPT/HCPCS: 93005; 94640; 94664; 96372; 99285; J2930